=== PATIENT | female | born 1950 | race Caucasian/White ===

== ENCOUNTER 2017-03-24 20:47 | Emergency (ER) | payer MEDICARE, OTHER ==
[~2017-03-24] VITALS: Ht 167.6 cm; Wt 68.0 kg
[~2017-03-24 20:47] MED LIST: ACET325 PO; ALLO100 PO; AMOCLA500 PO; ASPI81CH; ASPI81CH PO; BUME2 PO; BUPR150ER PO; CARV6.25 PO; CIPR250 PO; CLOP75 PO; DILT60; DILTIAZEM 300 MG; DOCU100 PO; DONE10 PO; Ferus150 MG; GLIM2; GLIP5 PO; HYDR1TAB94 PO; INSDET100; INSULANPEN SC; LISHYD2025 PO; LISI20 PO; LOSHYD; METF500; METF500 PO; NADOLOL PO; SIMV10 PO; TRAM50 PO; Tylenol325 MG PO
[2017-03-24 22:17] LABS: BASOPHILS ABSOLUTE AUTO 0.04 K/mm3 (0.00-0.23); BASOPHILS PERCENT AUTO 1 % (0-2); EOSINOPHILS ABSOLUTE AUTO 0.16 K/mm3 (0.00-0.68); EOSINOPHILS PERCENT AUTO 2 % (0-6); Hematocrit 30.7 % (33.0-51.0); Hemoglobin 9.8 g/dL (11.5-16.0); IMMATURE GRAN ABSOLUTE AUTO 0.02 K/mm3 (0.00-0.10); IMMATURE GRAN PERCENT AUTO 0 % (0-1); LYMPHOCYTES ABSOLUTE AUTO 1.55 K/mm3 (0.84-5.20); LYMPHOCYTES PERCENT AUTO 20 % (21-46); MONOCYTES ABSOLUTE AUTO 0.64 K/mm3 (0.16-1.47); MONOCYTES PERCENT AUTO 8 % (4-13); Mean Corpuscular HGB 28.3 pg (26.0-34.0); Mean Corpuscular HGB Conc 31.9 g/dL (31.5-36.5); Mean Corpuscular Volume 89 fL (80-100); Mean Platelet Volume 9.9 fL (9.1-12.4); NEUTROPHILS ABSOLUTE AUTO 5.55 K/mm3 (1.96-9.15); NEUTROPHILS PERCENT AUTO 70 % (41-73); Platelet Count 391 K/mm3 (150-400); RDW Coefficient Variation 14.4 % (11.7-14.2); Red Blood Cell Count 3.46 M/mm3 (3.80-5.20); White Blood Cell Count 7.96 K/mm3 (4.00-11.30)
[2017-03-24] MEDS ORDERED: ATEN50 PO (22:39)
[2017-03-24 22:40] LABS: Alanine Aminotransfer (ALT/SGP 40 U/L (12-78); Albumin, Blood 2.7 g/dL (3.4-5.0); Albumin/Globulin Ratio 0.6 (0.8-1.8); Alk Phos 139 U/L (50-136); Anion Gap 6 mmol/L (6-16); Aspartate Aminotrans (AST/SGOT 14 U/L (12-37); Bilirubin, Total 0.3 mg/dL (0.1-1.0); Blood Urea Nitrogen 11 mg/dL (8-24); Bun/Creatinine Ratio 12.7 (12.0-20.0); CO2, Blood 30 mmol/L (21-32); Calcium, Blood 8.3 mg/dL (8.5-10.1); Chloride, Blood 101 mmol/L (98-108); Creatinine, Blood 0.87 mg/dL (0.40-1.00); Globulin, Blood 4.5 g/dL (2.2-4.0); Glomerular Filtration Rate >60 (60-); Glucose, Blood 292 mg/dL (70-99); Potassium, Blood 3.5 mmol/L (3.5-5.5); Sodium, Blood 137 mmol/L (136-145); Total Protein, Blood 7.2 g/dL (6.4-8.2)
[2017-03-24] MEDS ORDERED: TRAM50 PO (22:40)
[2017-03-24] MEDS ORDERED: AMLO10 PO (22:40)
[2017-03-24] MEDS ORDERED: Vibramycin100 MG PO (23:43)
[2017-12-04] MEDS ORDERED: METF500C PO (11:03)
[2017-12-04] MEDS ORDERED: DOCU100 PO (11:03)
[2017-12-04] MEDS ORDERED: HYDCHL12.5 PO (11:03)
[2017-12-04] MEDS ORDERED: Augmentin 875-1 EACH PO (11:04)
[2017-12-04] MEDS ORDERED: HYDR1TAB94 PO (11:04)
== END 2017-03-24 23:50 | disposition home or self-care (01) ==
LOC: ER 20:47
PROVIDERS: Physician Assistant
DX: K91.872 Postprocedural seroma of a digestive system organ or structure following a digestive system procedure (principal); T81.4XXA Infection following a procedure, initial encounter; L03.311 Cellulitis of abdominal wall; I10 Essential (primary) hypertension; E11.9 Type 2 diabetes mellitus without complications; Z88.5 Allergy status to narcotic agent; Z88.8 Allergy status to other drugs, medicaments and biological substances; Z79.899 Other long term (current) drug therapy; Z79.84 Long term (current) use of oral hypoglycemic drugs
CPT/HCPCS: 36415; 74177; 80053; 85025; 99284; Q9967

== ENCOUNTER 2017-12-05 07:47 | Day surgery (SDC) | payer MEDICARE, OTHER ==
[~2017-12-05] VITALS: Ht 165.1 cm; Wt 65.8 kg
[~2017-12-05 07:47] MED LIST changes: +AMLO10 PO; +ATEN50 PO; +Augmentin 875-1 EACH PO; +HYDCHL12.5 PO; +METF500C PO; +Vibramycin100 MG PO
== END 2017-12-05 22:38 | disposition home or self-care (01) ==
LOC: ORSCMMR 07:47 → ORD 09:00 → ORSCMMR 22:38
PROVIDERS: Surgery
PROC: 05HM33Z Insertion of Infusion Device into Right Internal Jugular Vein, Percutaneous Approach (ICD-10-PCS; principal; 2017-12-05 09:00)
PROC: B5131ZA Fluoroscopy of Right Jugular Veins using Low Osmolar Contrast, Guidance (ICD-10-PCS; principal; 2017-12-05 09:00)
DX: C20 Malignant neoplasm of rectum (principal); C79.89 Secondary malignant neoplasm of other specified sites; C78.01 Secondary malignant neoplasm of right lung; I10 Essential (primary) hypertension; E11.9 Type 2 diabetes mellitus without complications; Z79.899 Other long term (current) drug therapy
CPT/HCPCS: 77001; 82435; 82947; 84132; 84295; C1788; J0690; J1642; J2250; J2405; J3010; J7120

== ENCOUNTER → 2018-05-26 | Outpatient (CLI) | payer MEDICARE, OTHER ==
[~2018-05-26] MED LIST changes: +GLIP10ER PO; +METO10 PO; +MORP15ER PO; +Morphine Sulfat15 MG PO; +ONDA8 PO
[2018-05-26 14:04] LABS: BASOPHILS ABSOLUTE AUTO 0.03 K/mm3 (0.00-0.23); BASOPHILS PERCENT AUTO 0 % (0-2); EOSINOPHILS ABSOLUTE AUTO 0.05 K/mm3 (0.00-0.68); EOSINOPHILS PERCENT AUTO 1 % (0-6); Hematocrit 24.1 % (33.0-51.0); Hemoglobin 7.2 g/dL (11.5-16.0); IMMATURE GRAN PERCENT AUTO 1 % (0-1); LYMPHOCYTES ABSOLUTE AUTO 0.73 K/mm3 (0.84-5.20); LYMPHOCYTES PERCENT AUTO 7 % (21-46); MONOCYTES ABSOLUTE AUTO 0.68 K/mm3 (0.16-1.47); MONOCYTES PERCENT AUTO 6 % (4-13); Mean Corpuscular HGB 26.1 pg (26.0-34.0); Mean Corpuscular HGB Conc 29.9 g/dL (31.5-36.5); Mean Corpuscular Volume 87 fL (80-100); Mean Platelet Volume 10.3 fL (9.1-12.4); NEUTROPHILS ABSOLUTE AUTO 9.06 K/mm3 (1.96-9.15); NEUTROPHILS PERCENT AUTO 85 % (41-73); Platelet Count 361 K/mm3 (150-400); RDW Coefficient Variation 16.9 % (11.7-14.2); Red Blood Cell Count 2.76 M/mm3 (3.80-5.20); White Blood Cell Count 10.65 K/mm3 (4.00-11.30)
[2018-05-26 14:18] LABS: Alanine Aminotransfer (ALT/SGP 41 U/L (12-78); Albumin, Blood 1.9 g/dL (3.4-5.0); Albumin/Globulin Ratio 0.3 (0.8-1.8); Alk Phos 258 U/L (50-136); Anion Gap 8 mmol/L (6-16); Aspartate Aminotrans (AST/SGOT 85 U/L (12-37); Bilirubin, Total 0.5 mg/dL (0.1-1.0); Blood Urea Nitrogen 9 mg/dL (8-24); CO2, Blood 29 mmol/L (21-32); Calcium, Blood 8.4 mg/dL (8.5-10.1); Chloride, Blood 94 mmol/L (98-108); Globulin, Blood 5.6 g/dL (2.2-4.0); Glomerular Filtration Rate >60 (60-); Glucose, Blood 178 mg/dL (70-99); Sodium, Blood 131 mmol/L (136-145); Total Protein, Blood 7.5 g/dL (6.4-8.2)
== END ==
LOC: LAB SHORT 13:42 → LAB 13:42
PROVIDERS: Internal Medicine Hematology & Oncology
DX: C20 Malignant neoplasm of rectum (principal); C78.01 Secondary malignant neoplasm of right lung; C79.89 Secondary malignant neoplasm of other specified sites
CPT/HCPCS: 80053; 82378; 85025

== ENCOUNTER 2018-05-28 00:08 | Day surgery (SDC) | payer MEDICARE, OTHER ==
[~2018-05-28 00:08] MED LIST changes: -GLIP10ER PO; -METO10 PO; -MORP15ER PO; -Morphine Sulfat15 MG PO; -ONDA8 PO
[2018-05-28] MEDS ORDERED: ONDA8 PO (09:23)
[2018-05-28] MEDS ORDERED: METO10 PO (09:24)
[2018-05-28] MEDS ORDERED: GLIP10ER PO (09:25)
[2018-05-28] MEDS ORDERED: MORP15ER PO (09:26)
[2018-05-28] MEDS ORDERED: Morphine Sulfat15 MG PO (10:04)
== END 2018-05-28 12:10 | disposition home or self-care (01) ==
LOC: ATC 00:08
DX: C20 Malignant neoplasm of rectum (principal); C79.89 Secondary malignant neoplasm of other specified sites; C78.01 Secondary malignant neoplasm of right lung; D63.0 Anemia in neoplastic disease; E11.9 Type 2 diabetes mellitus without complications; I10 Essential (primary) hypertension; E78.5 Hyperlipidemia, unspecified; Z79.899 Other long term (current) drug therapy; Z79.84 Long term (current) use of oral hypoglycemic drugs
CPT/HCPCS: 36430; 86850; 86900; 86901; 86923; J1642; J7050; P9016

== ENCOUNTER 2018-06-06 08:45 | Day surgery (SDC) | payer MEDICARE, OTHER ==
[~2018-06-06 08:45] MED LIST changes: +GLIP10ER PO; +METO10 PO; +MORP15ER PO; +Morphine Sulfat15 MG PO; +ONDA8 PO
== END 2018-06-06 11:49 | disposition home or self-care (01) ==
LOC: ATC 08:45
DX: C20 Malignant neoplasm of rectum (principal); C78.01 Secondary malignant neoplasm of right lung; C79.89 Secondary malignant neoplasm of other specified sites; D64.9 Anemia, unspecified; E78.00 Pure hypercholesterolemia, unspecified; I10 Essential (primary) hypertension; E11.9 Type 2 diabetes mellitus without complications; Z79.899 Other long term (current) drug therapy; Z79.84 Long term (current) use of oral hypoglycemic drugs; Z88.8 Allergy status to other drugs, medicaments and biological substances; Z88.5 Allergy status to narcotic agent
CPT/HCPCS: 96361; 96374; J1642; J2405; J7030

== ENCOUNTER → 2018-07-30 | Outpatient (CLI) | payer MEDICARE, OTHER ==
[2018-07-30 18:38] LABS: BASOPHILS ABSOLUTE AUTO 0.01 K/mm3 (0.00-0.23); BASOPHILS PERCENT AUTO 0 % (0-2); EOSINOPHILS PERCENT AUTO 0 % (0-6); Hemoglobin 6.9 g/dL (11.5-16.0); IMMATURE GRAN ABSOLUTE AUTO 0.03 K/mm3 (0.00-0.10); IMMATURE GRAN PERCENT AUTO 1 % (0-1); LYMPHOCYTES ABSOLUTE AUTO 0.38 K/mm3 (0.84-5.20); LYMPHOCYTES PERCENT AUTO 7 % (21-46); MONOCYTES ABSOLUTE AUTO 0.08 K/mm3 (0.16-1.47); MONOCYTES PERCENT AUTO 1 % (4-13); Mean Corpuscular HGB 29.2 pg (26.0-34.0); Mean Platelet Volume 10.5 fL (9.1-12.4); NEUTROPHILS ABSOLUTE AUTO 5.27 K/mm3 (1.96-9.15); NEUTROPHILS PERCENT AUTO 91 % (41-73); Platelet Count 169 K/mm3 (150-400); RDW Coefficient Variation 20.2 % (11.7-14.2); RDW Standard Deviation 71.9 fL (35.1-46.3); Red Blood Cell Count 2.36 M/mm3 (3.80-5.20); White Blood Cell Count 5.77 K/mm3 (4.00-11.30)
[2018-07-30 18:41] LABS: Mean Corpuscular Volume 98 fL (80-100)
[2018-07-30 19:41] LABS: Alanine Aminotransfer (ALT/SGP 16 U/L (12-78); Albumin, Blood 1.9 g/dL (3.4-5.0); Albumin/Globulin Ratio 0.4 (0.8-1.8); Alk Phos 123 U/L (50-136); Anion Gap 10 mmol/L (6-16); Aspartate Aminotrans (AST/SGOT 20 U/L (12-37); Bilirubin, Total 0.3 mg/dL (0.1-1.0); Blood Urea Nitrogen 18 mg/dL (8-24); Bun/Creatinine Ratio 23.5 (12.0-20.0); CO2, Blood 25 mmol/L (21-32); Chloride, Blood 99 mmol/L (98-108); Creatinine, Blood 0.77 mg/dL (0.40-1.00); Globulin, Blood 4.9 g/dL (2.2-4.0); Glomerular Filtration Rate >60 (60-); Glucose, Blood 177 mg/dL (70-99); Potassium, Blood 4.2 mmol/L (3.5-5.5); Sodium, Blood 134 mmol/L (136-145); Total Protein, Blood 6.8 g/dL (6.4-8.2)
== END | disposition home or self-care (01) ==
LOC: LAB 18:12 → LAB SHORT 18:12
PROVIDERS: Internal Medicine Hematology & Oncology
DX: C20 Malignant neoplasm of rectum (principal)
CPT/HCPCS: 80053; 85025

== ENCOUNTER 2018-08-06 12:59 | Day surgery (SDC) | payer MEDICARE, OTHER ==
--- NOTE | 2018-08-06 15:24 | NUR ---
ACCESS PORT A CATH SITE TO RIGHT UPPER CHEST. STERILE TECHNIQUE MAINTAINED. FLUSHES AND DRAWS WELL. BIOPATCH APPLIED. PT TOLERATED PROCEDURE WELL. SITE HEALTHY AND WNL.
--- NOTE | 2018-08-06 16:43 | NUR ---
AROND 1430 THE PT ARRIVED TO THE MEDICAL FLOOR AN ATC PT, A/OX3, PLEASANT AND COOPERATIVE, DUSKY IN COLOR AND FRAIL LOOKING, THE PTS MEDIPORT WAS ACCESSED, ZOFRAN WAS GIVEN FOR N/V ORDERED, PT WAS ORIENTED TO THE CALL SYSTEM, THE PT IS RECIEVING BLOOD TRANSFUSION AT THIS TIME AND APPEARS TO BE TOLERATING IT WELL
--- NOTE | 2018-08-06 19:36 | NUR ---
care of the pt transfered to Brenda conte, the pt is tolerating her tranfusion well
--- NOTE | 2018-08-06 20:14 | NUR ---
PT HERE FOR TRANSFUSION OF 2 UNITS PRBC. PRBC FINISHED AND RT CHEST POSTACATH DEACCESSED PER PROTOCOL WITH SALINE AND HEPARIN PER OUT PROTOCOL. NO REACTION OBSERVED. DTR HERE TO [employer] SENT HOME WITH ASSIST 2014. TRANSPORT TO [facility]IA
== END 2018-08-06 20:17 | disposition home or self-care (01) ==
LOC: TRN 12:59 → MEDS 20:17 → TRN 20:17 → EDSTATUS 08-18 14:51
DX: C20 Malignant neoplasm of rectum (principal); D63.0 Anemia in neoplastic disease; I10 Essential (primary) hypertension; E78.00 Pure hypercholesterolemia, unspecified; E11.9 Type 2 diabetes mellitus without complications; Z79.84 Long term (current) use of oral hypoglycemic drugs; Z85.040 Personal history of malignant carcinoid tumor of rectum; Z79.899 Other long term (current) drug therapy; Z88.8 Allergy status to other drugs, medicaments and biological substances; Z88.5 Allergy status to narcotic agent
CPT/HCPCS: 36430; 86850; 86900; 86901; 86923; J1642; J2405; J7040; P9016

== ENCOUNTER 2018-08-28 11:25 | Emergency (ER) | payer MEDICARE, OTHER ==
[~2018-08-28] VITALS: Ht 165.1 cm; Wt 47.6 kg
[2018-08-28 12:00] LABS: Albumin, Blood 1.9 g/dL (3.4-5.0); Albumin/Globulin Ratio 0.4 (0.8-1.8); Bilirubin, Total 0.5 mg/dL (0.1-1.0); Bun/Creatinine Ratio 38.3 (12.0-20.0); Calcium, Blood 8.4 mg/dL (8.5-10.1); Creatinine, Blood 1.07 mg/dL (0.40-1.00); Globulin, Blood 4.7 g/dL (2.2-4.0); Potassium, Blood 3.8 mmol/L (3.5-5.5); Total Protein, Blood 6.6 g/dL (6.4-8.2)
[2018-08-28 12:01] LABS: BASOPHILS ABSOLUTE AUTO 0.01 K/mm3 (0.00-0.23); BASOPHILS PERCENT AUTO 0 % (0-2); EOSINOPHILS PERCENT AUTO 0 % (0-6); Hemoglobin 10.2 g/dL (11.5-16.0); IMMATURE GRAN ABSOLUTE AUTO 0.09 K/mm3 (0.00-0.10); IMMATURE GRAN PERCENT AUTO 1 % (0-1); LYMPHOCYTES ABSOLUTE AUTO 1.09 K/mm3 (0.84-5.20); LYMPHOCYTES PERCENT AUTO 8 % (21-46); MONOCYTES ABSOLUTE AUTO 0.96 K/mm3 (0.16-1.47); MONOCYTES PERCENT AUTO 7 % (4-13); Mean Corpuscular HGB 29.7 pg (26.0-34.0); Mean Corpuscular HGB Conc 31.9 g/dL (31.5-36.5); Mean Corpuscular Volume 93 fL (80-100); Mean Platelet Volume 10.4 fL (9.1-12.4); NEUTROPHILS ABSOLUTE AUTO 10.85 K/mm3 (1.96-9.15); NEUTROPHILS PERCENT AUTO 83 % (41-73); Platelet Count 194 K/mm3 (150-400); RDW Coefficient Variation 17.6 % (11.7-14.2); RDW Standard Deviation 59.5 fL (35.1-46.3); Red Blood Cell Count 3.43 M/mm3 (3.80-5.20)
[2018-08-28 13:42] LABS: Source, Urine Clean Catch
[2018-08-28 13:46] LABS: Bilirubin, Urine Neg (Neg); Blood, Urine 1+ (Neg); Glucose Qualitative, Urine Neg (Neg); Ketones, Urine Neg (Neg); Leukocyte Esterase, Urine 3+ (Neg); Nitrite, Urine Neg (Neg); Protein, Urine 2+ (Neg); Urobilinogen, Urine NORM (Normal)
[2018-08-28 14:04] LABS: Appearance, Urine Hazy (Clear); Color, Urine Yellow (P-Yellow)
[2018-08-28 14:06] LABS: White Blood Cells, Urine TNTC /hpf (0-5)
[2018-08-28 14:07] LABS: Bacteria Many /hpf; Red Blood Cells, Urine 0-2 /hpf (0-2); Squamous Epithelial Cells Not Seen /hpf (Few); Transitional Epithelial Cells Mod /hpf ({null, 0-Rare})
--- NOTE | 2018-08-28 14:29 | NUR ---
Initial Visit: Palliative Care Consult for Goals of Care: Spoke with Dr Mckeon and he reports Pt would benefit from palliative visit to establish goals of care: Pt has history of cancer and is seen by Dr Aaron. Pt is resting in [facility] upon arrival with family present. Pt denies pain, dyspnea, and anxiety at this time. She reports occasional pain in her ribs and tailbone. Dr Mckeon enters room and reports findings to Pt and family. Options for care given. Pt and family wish to pursue surgery of abscesses if surgeon deems Pt is a candidate. After Dr Mckeon left this RN stayed to answer questions or concerns. Listened as Pt's son Topher (primary caregiver) expressess frustrations regarding Dr Aaron's prognosis and recommendation of hospice. Pt states that she has too much to live for and would like to see her grandchildren grow up. Listened as Pt reports losing her appetite and having nausea frequently. Educated Pt on the importance of making an appointment with her PCP in order to manage her nausea at home. Pt reports current regimen of zofran is no longer beneficial. Topher reports Pt has been experiencing significant weakness since Saturday. Pt was independent before saturday of her ADL's and now requires assistance with transfers, ambulation, bathing, and dressing. Pt and family are agreeable with palliative care to follow for symptom management if admitted to the hospital. Plan: Palliative Care will follow for symptom management if admitted. Pt may transfer to [place] pending consultation recommendations.
--- NOTE | 2018-08-28 14:43 | NUR ---
Pal spiritual care initial visit: Ena appears quite frail. She is surrounded by four adult children. Ena admits she is tired of suffering, but also states she is not ready to quit fighting. "I want more time." As we spoke, her children appeared worried and tearful. I provided prayer and gentle spiritual direction for Ena. She verbalized appreciation for spiritual encouragement. At one point, I noticed Ena's dtr shaking her head with sadness as her mom spoke about continuing the fight. I suspect it has been hard for Ena's children to see her suffer. Ena is being prepped to transfer to a higher level of care. Advised I would remain available.
== END 2018-08-28 16:01 | disposition short-term general hospital (02) ==
LOC: ER 11:25
PROVIDERS: Emergency Medicine
DX: A41.9 Sepsis, unspecified organism (principal); K65.1 Peritoneal abscess; R11.2 Nausea with vomiting, unspecified; I10 Essential (primary) hypertension; E11.9 Type 2 diabetes mellitus without complications; Z88.8 Allergy status to other drugs, medicaments and biological substances; Z79.899 Other long term (current) drug therapy; Z79.891 Long term (current) use of opiate analgesic; Z79.84 Long term (current) use of oral hypoglycemic drugs
CPT/HCPCS: 71046; 74177; 80053; 81001; 83605; 85025; 87040; 87077; 87086; 87186; 93005; 93010; 96361-59; 96365-59; 96367-59; 96375-59; 96376-59; 99285-25; J1170; J2405; J2543; J3370; J7030; P9612; Q9967